=== PATIENT | female | born 1990 | race Caucasian/White ===

== ENCOUNTER 2021-03-25 01:29 | Emergency (ER) | payer OTHER ==
[~2021-03-25] VITALS: Ht 165.1 cm; Wt 64.9 kg
[2021-03-25 01:37] VITALS: BP 113/64
--- NOTE | 2021-03-25 02:09 | NUR ---
101 BLOOD SUGAR, AWARE
== END 2021-03-25 02:28 | disposition home or self-care (01) ==
LOC: ER 01:36
DX: M62.838 Other muscle spasm (principal); M54.2 Cervicalgia; Z59.00 Homelessness unspecified